=== PATIENT | male | born 1940 | race Caucasian/White ===

== ENCOUNTER 2022-04-08 21:23 | Inpatient (IN) | payer BC ==
[~2022-04-08] VITALS: Ht 177.8 cm; Wt 81.6 kg
[2022-04-08] MEDS ORDERED: ONDANSETRON 4 MG/2 ML VIAL IV ONE (21:30)
--- NOTE | 2022-04-08 21:39 | NUR ---
pt bib ra for c/o abd pain. Dr. Rudolph at bedside for MSE.
[2022-04-08] MEDS ORDERED: IV NORMAL SALINE 500 ML IV ONE (21:45)
[2022-04-08] MEDS ORDERED: MORPHINE SULFATE 2 MG/1 ML DISP.SYRIN IV ONE ×2 (21:45→22:30)
[2022-04-08] MEDS ORDERED: ONDANSETRON 4 MG/2 ML VIAL ONE (21:53)
[2022-04-08] MEDS ORDERED: MORPHINE SULFATE 2 MG/1 ML DISP.SYRIN ONE ×2 (21:53→22:42)
[2022-04-08] MEDS ORDERED: IOHEXOL 300MG/ML 100 ML INFUS..BTL ONE (21:58)
[2022-04-08] MEDS ORDERED: IV NORMAL SALINE 250 ML IV ONE (21:58)
[2022-04-08] MEDS ORDERED: SWABABLE VALVE TRANSFER SET EA MC ONE (21:58)
[2022-04-08 22:01] LABS: HEMATOCRIT 50.5 % (36.7-47.1); MEAN CORPUSCULAR HEMOGLOBIN 31.3 uug (23.8-33.4); MEAN CORPUSCULAR VOLUME 90.9 fL (73.0-96.2); PLATELET COUNT (AUTO) 156 K/uL (152-348)
[2022-04-08 22:15] LABS: ETHANOL < 3 MG/DL (0-0)
[2022-04-08 22:23] LABS: ALANINE AMINOTRANSFERASE 25 U/L (16-63); ALKALINE PHOSPHATASE 72 U/L (50-136); ASPARTATE AMINOTRANSFERASE 21 U/L (15-37); BILIRUBIN,DIRECT 0.3 mg/dL (0.0-0.2); BILIRUBIN,TOTAL 1.1 mg/dL (0.2-1.0); CARBON DIOXIDE 20 mmol/L (21-32); CHLORIDE 101 mmol/L (98-107); CREATININE 1.4 mg/dL (0.6-1.3); GLUCOSE 163 mg/dL (74-106); POTASSIUM 3.7 mmol/L (3.5-5.1); UREA NITROGEN, BLOOD 33 mg/dL (7-18)
[2022-04-08] MEDS ORDERED: hydrALAZINE HCL 20 MG/1 ML VIAL ONE (22:41)
[2022-04-08] MEDS ORDERED: hydrALAZINE HCL 20 MG/1 ML VIAL IV ONE (22:45)
--- NOTE | 2022-04-08 22:47 | NUR ---
pt is having an ultrasound done.
--- NOTE | 2022-04-08 22:48 | NUR ---
Dr. Rudolph is aware of pt's elevted bp, iv hydrazaline was given and morphine for pain.
[2022-04-08] MEDS ORDERED: IOHEXOL 350 100 ML INFUS..BTL ONE (22:49)
--- NOTE | 2022-04-08 23:03 | NUR ---
arrangments are being made for pt to go to [facility] for cat scan via ambulance. the cat scan at this hospital is not functioning. pt and his is aware.
--- NOTE | 2022-04-08 23:07 | NUR ---
spoke with [facility] ambulance for transport to [facility] for cat scan. they state eta is 75 to 90 minutes. approximatly 1230 am.
--- NOTE | 2022-04-08 23:23 | NUR ---
order received from Dr. Rudolph for insertion of urinary catheter. this was placed with a 18 fr coude catheter, pt cate well.
--- NOTE | 2022-04-08 23:50 | NUR ---
PT AND UNABLE TO PROVIDE PT'S RX. PER SHE WILL CALL TOMORROW TO UPDATE US ON HIS PRESCRIBED MEDS.
[2022-04-08 23:53] LABS: *BILIRUBIN,URIN NEGATIVE (NEGATIVE); *BLOOD, URINE NEGATIVE (NEGATIVE); *CLARITY,URINE CLEAR (CLEAR); *COLOR,URINE YELLOW (YELLOW); *KETONES,URINE 1+ (NEGATIVE); *UROBILINOGEN,URINE 0.2 E.U./dl (NORMAL); LEUKOCYTE ESTERASE ,URINE NEGATIVE (NEGATIVE); NITRITE, URINE NEGATIVE (NEGATIVE); PH,URINE 5.5 (5.0-8.0); UGLUCOSE NEGATIVE (NEGATIVE)
[2022-04-08] MEDS ORDERED: MORPHINE SULFATE 4 MG/1 ML DISP.SYRIN ONE (23:58)
[2022-04-09] MEDS ORDERED: CLONIDINE HCL 0.1 MG TABLET ONE (00:05)
--- NOTE | 2022-04-09 00:05 | NUR ---
[facility] [employer] is here for the pt to go to [facility] for cat scan. Pt was given morphine 4 mg for pain. bp remains elevated order for clonidine 0.[address] Klaudia Rudolph is aware his bp remains elevated.
[2022-04-09] MEDS ORDERED: CLONIDINE HCL 0.1 MG TABLET PO ONE (00:15)
[2022-04-09] MEDS ORDERED: MORPHINE SULFATE 4 MG/1 ML DISP.SYRIN IV ONE (00:15)
--- NOTE | 2022-04-09 00:36 | NUR ---
spoke with warehouse order filler at [facility] she is aware that this pt will be taken by ambulance to [facility] for a cat scan she was given an update of his condition.
--- NOTE | 2022-04-09 00:52 | NUR ---
pt was transported by [facility] ambulance to [place] for cat scan and will return to [facility].
--- NOTE | 2022-04-09 01:48 | NUR ---
pt returnd from [facility] ct scan.
[2022-04-09] MEDS ORDERED: IV NS 1000 ML 1,000 ML IV ONE ×2 (02:00→05:00)
--- NOTE | 2022-04-09 02:31 | NUR ---
pt was cleaned he had large stool, pt states his stomach feels better. his hr is still 118 he is still receiveing one liter of fluid.
--- NOTE | 2022-04-09 03:30 | NUR ---
pt had episode of loose stools, pt was cleaned with assistance of another nurse.
[2022-04-09] MEDS ORDERED: PIPERACILLIN SODIUM/TAZOBACTAM 3.375 G in IV DEXTROSE 5% 50 ML IV ONE (05:00)
[2022-04-09] MEDS ORDERED: PIPERACILLIN/TAZOBACTAM/D5W 50 ML IV ONE ×2 (05:10→14:09)
--- NOTE | 2022-04-09 05:21 | NUR ---
call placed to [facility] for admission.
--- NOTE | 2022-04-09 05:26 | NUR ---
Jerson Streeter called back and is speaking to Dr. Rudolph.
[2022-04-09] MEDS ORDERED: ACETAMINOPHEN 325 MG TABLET PO PRN (05:30)
[2022-04-09] MEDS ORDERED: TEMAZEPAM 15 MG CAPSULE PO PRN (05:30)
[2022-04-09] MEDS ORDERED: MAGNESIUM HYDROXIDE 30 ML LIQUID UDC PO PRN (05:30)
[2022-04-09] MEDS ORDERED: REMEDY ESSENTIAL ZINC PASTE 113 GM TP PRN (05:30)
[2022-04-09] MEDS ORDERED: IV NS 1000 ML 1,000 ML IV PRN (05:30)
--- NOTE | 2022-04-09 05:48 | NUR ---
pt had additinal episode of loose stool. pt hr now at 103
[2022-04-09 06:24] LABS: ALANINE AMINOTRANSFERASE 36 U/L (16-63); ALKALINE PHOSPHATASE 49 U/L (50-136); ASPARTATE AMINOTRANSFERASE 29 U/L (15-37); CARBON DIOXIDE 21 mmol/L (21-32); CHLORIDE 103 mmol/L (98-107); CREATININE 1.8 mg/dL (0.6-1.3); GLUCOSE 230 mg/dL (74-106); POTASSIUM 3.4 mmol/L (3.5-5.1); TOTAL PROTEIN, SERUM 6.2 g/dL (6.4-8.2); UREA NITROGEN, BLOOD 31 mg/dL (7-18)
--- NOTE | 2022-04-09 06:46 | NUR ---
call to [facility] to update on labs.
--- NOTE | 2022-04-09 08:05 | NUR ---
Cleaned pt and changed diaper. Awaiting notification from ell teacher about room placement.
--- NOTE | 2022-04-09 08:23 | NUR ---
SPO2 has been holding in 91-92 range. Placed pt on O2 via NC at 1lpm, saturation improved to 96%
[2022-04-09] MEDS ORDERED: HYDROCODONE/APAP 5-325MG TABLET ONE (08:27)
[2022-04-09] MEDS: HYDROCODONE/APAP 5-325MG TABLET PO PRN (08:32)
[2022-04-09 08:46] LABS: ALANINE AMINOTRANSFERASE 33 U/L (16-63); ALKALINE PHOSPHATASE 51 U/L (50-136); ASPARTATE AMINOTRANSFERASE 31 U/L (15-37); BILIRUBIN,TOTAL 0.9 mg/dL (0.2-1.0); CARBON DIOXIDE 22 mmol/L (21-32); CHLORIDE 105 mmol/L (98-107); CREATININE 1.6 mg/dL (0.6-1.3); GLUCOSE 232 mg/dL (74-106); POTASSIUM 3.6 mmol/L (3.5-5.1); TOTAL PROTEIN, SERUM 6.2 g/dL (6.4-8.2); UREA NITROGEN, BLOOD 33 mg/dL (7-18)
[2022-04-09] MEDS: ASPIRIN 81 MG TAB.CHEW PO SCH (09:00)
[2022-04-09] MEDS: METOPROLOL TARTRATE 25 MG TABLET PO SCH ×2 (09:00→20:35)
[2022-04-09] MEDS ORDERED: METOPROLOL TARTRATE 50 MG TABLET PO SCH (09:00)
[2022-04-09] MEDS: PANTOPRAZOLE SODIUM 40 MG VIAL IV SCH (09:00)
--- NOTE | 2022-04-09 09:05 | NUR ---
Not in stock in [facility], BP under control.
[2022-04-09] MEDS ORDERED: MORPHINE SULFATE 2 MG/1 ML DISP.SYRIN ONE (10:23)
[2022-04-09] MEDS: MORPHINE SULFATE 2 MG/1 ML DISP.SYRIN IV PRN ×2 (10:35→20:40)
[2022-04-09] MEDS ORDERED: PANTOPRAZOLE SODIUM 40 MG VIAL ONE (10:47)
[2022-04-09] MEDS ORDERED: ENOXAPARIN SODIUM 30 MG/0.3 ML DISP.SYRIN ONE (10:48)
[2022-04-09] MEDS: ENOXAPARIN SODIUM 30 MG/0.3 ML DISP.SYRIN SUBCUT SCH (10:48)
[2022-04-09] MEDS ORDERED: ASPIRIN 81 MG TAB.CHEW ONE (10:48)
[2022-04-09] MEDS ORDERED: DEXTROSE 50% 50 ML DISP.SYRIN IV PRN (11:15)
[2022-04-09] MEDS: BLOOD SUGAR DIAGNOSTIC 1 EACH STRIP VI SCH ×3 (11:54→20:31)
--- NOTE | 2022-04-09 13:00 | NUR ---
Pt states he is very axious. Admitting MD gave T.O. for Ativan, PO 1mg, Q 6hrs PRN
[2022-04-09] MEDS ORDERED: LORAZEPAM 1 MG TABLET ONE (13:05)
--- NOTE | 2022-04-09 13:45 | NUR ---
Pt more calm, resting in bed, eyes closed, easily stirs.
[2022-04-09] MEDS ORDERED: PIPERACILLIN SODIUM/TAZOBACTAM 3.375 G in IV DEXTROSE 5% 50 ML IV SCH (14:00)
[2022-04-09] MEDS: IV NS 1000 ML 1,000 ML IV SCH (14:00)
[2022-04-09] MEDS: PIPERACILLIN SODIUM/TAZOBACTAM 3.375 G in IV DEXTROSE 5% 100 ML IV SCH ×2 (14:15→22:22)
[2022-04-09] MEDS: LORAZEPAM 1 MG TABLET PO PRN (15:35)
--- NOTE | 2022-04-09 16:33 | NUR ---
Called report to CHARLIE Beckham
--- NOTE | 2022-04-09 16:44 | NUR ---
Karen called, pt will be in room 311
[2022-04-09 17:50] VITALS: BP 166/69
[2022-04-09] MEDS: DOCUSATE SODIUM 100 MG CAPSULE PO SCH (18:00)
--- NOTE | 2022-04-09 18:00 | NUR ---
Received pt from ER. Pt is from home, came in for abdominal pain. Admitting diagnosis is colitis and lactic acidosis. Pt is a/o x 3-4, presenting with normal sinus rhythm on telemetry. Pt saturating 93% on room air BP 166/69 HR 89. Placed pt on 2L NC. at bedside, provided medical history along with pt, comfort measures provided, call light within reach. Will endorse to vehicle painter.
--- NOTE | 2022-04-09 19:26 | NUR ---
Pt reports chest pain 05/20. Echocardiogram completed. Will endorse to warehouse supervisor 3rd shift.
[2022-04-09] MEDS: ATORVASTATIN 40 MG TABLET PO SCH (20:34)
[2022-04-09] MEDS: INSULIN REGULAR, HUMAN 300 UNIT/3 ML VIAL SQ PRN (20:44)
[2022-04-09 21:10] VITALS: BP 152/64
--- NOTE | 2022-04-09 21:12 | NUR ---
Patient in bed AALOx4.C/o abd'l pain and lower back pain.Denies chest pain at this time.Medicated with morphine 2 mg IVP .No s/s of distress noted. On O2 at 2LPM via NC.IV patent and intact on right AC with IVF infusing well. F/C draining well with tea colored output.Received lactic acid result trending down from 2.7 [address]Dermendjian LINARES at this time.Call light with in reach. Will continue to monitor.
[2022-04-10] VITALS: BP 151/61
[2022-04-10] MEDS: LORAZEPAM 1 MG TABLET PO PRN ×2 (00:34→21:45)
[2022-04-10] MEDS: IV NS 1000 ML 1,000 ML IV SCH ×2 (01:12→14:41)
[2022-04-10] MEDS: HYDROCODONE/APAP 5-325MG TABLET PO PRN (02:08)
[2022-04-10 04:55] VITALS: BP 146/61
[2022-04-10] MEDS: PIPERACILLIN SODIUM/TAZOBACTAM 3.375 G in IV DEXTROSE 5% 100 ML IV SCH ×3 (05:49→21:34)
[2022-04-10 06:42] LABS: HEMATOCRIT 44.5 % (36.7-47.1); MEAN CORPUSCULAR HEMOGLOBIN 31.3 uug (23.8-33.4); MEAN CORPUSCULAR VOLUME 91.5 fL (73.0-96.2); PLATELET COUNT (AUTO) 118 K/uL (152-348)
[2022-04-10] MEDS: BLOOD SUGAR DIAGNOSTIC 1 EACH STRIP VI SCH ×4 (06:48→21:33)
--- NOTE | 2022-04-10 06:56 | NUR ---
Patient slept intermittently in no acute distress noted. F/c leaking, unable to re- insert f/c d/t resistance noted and pain.Patient able to void. NSR on tele .IV patent and intact continue on IVF infusing well. Will endorse to oncoming shift.
[2022-04-10 07:23] LABS: THYROID STIMULATING HORMONE 1.309 mIU/mL (0.358-3.740)
[2022-04-10 07:24] LABS: CARBON DIOXIDE 22 mmol/L (21-32); CHLORIDE 101 mmol/L (98-107); CREATININE 1.4 mg/dL (0.6-1.3); GLUCOSE 128 mg/dL (74-106); POTASSIUM 3.8 mmol/L (3.5-5.1); UREA NITROGEN, BLOOD 38 mg/dL (7-18)
[2022-04-10 07:30] LABS: ALANINE AMINOTRANSFERASE 33 U/L (16-63); ALKALINE PHOSPHATASE 41 U/L (50-136); ASPARTATE AMINOTRANSFERASE 47 U/L (15-37); BILIRUBIN,TOTAL 0.7 mg/dL (0.2-1.0); TOTAL PROTEIN, SERUM 6.1 g/dL (6.4-8.2)
[2022-04-10 07:50] LABS: MAGNESIUM 2.2 mg/dL (1.8-2.4); PHOSPHOROUS 3.1 mg/dL (2.5-4.9)
[2022-04-10] MEDS: MIRALAX 17 GM POWD.PACK PO SCH (09:00)
[2022-04-10] MEDS: DOCUSATE SODIUM 100 MG CAPSULE PO SCH ×2 (09:00→16:44)
--- NOTE | 2022-04-10 09:40 | NUR ---
notified of critical troponin 516.
[2022-04-10] MEDS: ASPIRIN 81 MG TAB.CHEW PO SCH (09:57)
[2022-04-10] MEDS: ENOXAPARIN SODIUM 30 MG/0.3 ML DISP.SYRIN SUBCUT SCH (09:58)
[2022-04-10] MEDS: PANTOPRAZOLE SODIUM 40 MG VIAL IV SCH (09:58)
[2022-04-10] MEDS: METOPROLOL TARTRATE 25 MG TABLET PO SCH ×2 (09:59→21:00)
[2022-04-10] MEDS: INSULIN REGULAR, HUMAN 300 UNIT/3 ML VIAL SQ PRN ×2 (10:00→21:47)
[2022-04-10 11:11] VITALS: BP 114/66
[2022-04-10] MEDS ORDERED: CLOP75TA33 PO (11:51)
[2022-04-10] MEDS ORDERED: ATOR40TA PO (11:51)
[2022-04-10] MEDS ORDERED: ISOS30TA86 PO (11:51)
[2022-04-10] MEDS ORDERED: TEMA15CA PO (11:51)
[2022-04-10] MEDS ORDERED: DULO60CA45 PO (11:51)
[2022-04-10] MEDS ORDERED: LOSA25TA27 PO (11:51)
[2022-04-10] MEDS ORDERED: ALIR75PE6 SQ (11:51)
[2022-04-10] MEDS ORDERED: TOLT4CAP PO (11:51)
[2022-04-10] MEDS ORDERED: FINA5TAB11 PO (11:51)
[2022-04-10] MEDS ORDERED: TERA10CA4 PO (11:51)
[2022-04-10] MEDS ORDERED: PANT40TA49 PO (11:51)
[2022-04-10] MEDS ORDERED: RANO500T3 PO (11:51)
[2022-04-10 15:18] VITALS: BP 124/85
--- NOTE | 2022-04-10 15:40 | NUR ---
Troponin level still critical high but downward trending. lab reported level to 469. Finisher Hand and puff ironer notified. No further changes in care. Home medications reconciled per MD order.
[2022-04-10] MEDS ORDERED: PANTOPRAZOLE SODIUM 40 MG TABLET.DR PO SCH (15:45)
[2022-04-10] MEDS: FINASTERIDE 5 MG TABLET PO SCH (16:43)
[2022-04-10] MEDS: TERAZOSIN 5 MG CAPSULE PO SCH (16:43)
[2022-04-10] MEDS: ISOSORBIDE MONONITRATE 30 MG TAB.SR.24H PO SCH (16:44)
[2022-04-10] MEDS: DULOXETINE 60 MG CAPSULE.DR PO SCH (16:44)
[2022-04-10] MEDS: LOSARTAN POTASSIUM 25 MG TABLET PO SCH (16:49)
--- NOTE | 2022-04-10 18:53 | NUR ---
Pt had pulled out IV access, attempted multiple attempts but unsuccessful. Midline inserted left upperarm 18g. pt is a/o x 3-4, at bedside, comfort measures provided. will endorse
--- NOTE | 2022-04-10 19:30 | NUR ---
Received patient dangle both legs, wanted to get up but changed his mind, assisted back to bed, at bedside,complain of sob/anxiety, but no chest pain, tele monitor sinus rhythm at this time, on oxygen 2 liters sat 94% will offer antianxiety meds as ordered. no s/s of distress.
--- NOTE | 2022-04-10 19:35 | NUR ---
Patient was noted that his sliding toward the foot of the bed, two staff pulled patient up to head of the bed, stated that he feels better on upright position, because he complain of sob earlier. cont to monitor.
[2022-04-10 20:03] VITALS: BP 94/52
[2022-04-10] MEDS ORDERED: ATORVASTATIN 40 MG TABLET PO SCH (21:00)
[2022-04-10] MEDS ORDERED: TEMAZEPAM 15 MG CAPSULE PO SCH (21:00)
[2022-04-10] MEDS: ATORVASTATIN 40 MG TABLET PO SCH (21:33)
[2022-04-10] MEDS: RANOLAZINE 500 MG TAB.ER.12H PO SCH (21:33)
--- NOTE | 2022-04-10 21:48 | NUR ---
Patient restless, complaining of anxiety, offered ativan for anxiety, agree to take it, cont to monitor.
[2022-04-11 00:03] VITALS: BP 91/51
[2022-04-11 04:06] VITALS: BP 100/55
[2022-04-11] MEDS: PIPERACILLIN SODIUM/TAZOBACTAM 3.375 G in IV DEXTROSE 5% 100 ML IV SCH ×3 (04:25→21:07)
[2022-04-11] MEDS: IV NS 1000 ML 1,000 ML IV SCH (04:25)
[2022-04-11] MEDS: BLOOD SUGAR DIAGNOSTIC 1 EACH STRIP VI SCH ×4 (05:05→20:48)
--- NOTE | 2022-04-11 05:57 | NUR ---
Patient alert oriented, no sob no chest pain, no further episode of diarrhea noted, just passing gas, voiding well. Patient has no complain of abdominal pain at this time, call light within reach.
[2022-04-11 07:36] LABS: MEAN CORPUSCULAR HEMOGLOBIN 31.6 uug (23.8-33.4); MEAN CORPUSCULAR VOLUME 91.3 fL (73.0-96.2); PLATELET COUNT (AUTO) 101 K/uL (152-348)
[2022-04-11 07:39] LABS: ALANINE AMINOTRANSFERASE 30 U/L (16-63); ALKALINE PHOSPHATASE 40 U/L (50-136); ASPARTATE AMINOTRANSFERASE 36 U/L (15-37); BILIRUBIN,TOTAL 0.7 mg/dL (0.2-1.0); CARBON DIOXIDE 25 mmol/L (21-32); CHLORIDE 97 mmol/L (98-107); CREATININE 2.1 mg/dL (0.6-1.3); GLUCOSE 110 mg/dL (74-106); POTASSIUM 3.5 mmol/L (3.5-5.1); TOTAL PROTEIN, SERUM 5.7 g/dL (6.4-8.2); UREA NITROGEN, BLOOD 51 mg/dL (7-18)
[2022-04-11 07:55] VITALS: BP 104/49
[2022-04-11] MEDS: PANTOPRAZOLE SODIUM 40 MG VIAL IV SCH (08:01)
[2022-04-11] MEDS: ASPIRIN 81 MG TAB.CHEW PO SCH (08:02)
[2022-04-11] MEDS: DOCUSATE SODIUM 100 MG CAPSULE PO SCH ×2 (08:03→17:00)
[2022-04-11] MEDS: LOSARTAN POTASSIUM 25 MG TABLET PO SCH (08:03)
[2022-04-11] MEDS: RANOLAZINE 500 MG TAB.ER.12H PO SCH ×2 (08:03→20:38)
[2022-04-11] MEDS: FINASTERIDE 5 MG TABLET PO SCH (08:04)
[2022-04-11] MEDS: DULOXETINE 60 MG CAPSULE.DR PO SCH (08:04)
[2022-04-11] MEDS: ISOSORBIDE MONONITRATE 30 MG TAB.SR.24H PO SCH (08:07)
[2022-04-11] MEDS: MIRALAX 17 GM POWD.PACK PO SCH ×2 (08:07→14:57)
[2022-04-11] MEDS: ENOXAPARIN SODIUM 30 MG/0.3 ML DISP.SYRIN SUBCUT SCH (08:13)
[2022-04-11] MEDS: CLOPIDOGREL 75 MG TABLET PO SCH (08:21)
[2022-04-11] MEDS: TERAZOSIN 5 MG CAPSULE PO SCH (09:00)
[2022-04-11] MEDS: METOPROLOL TARTRATE 25 MG TABLET PO SCH ×2 (09:00→20:38)
--- NOTE | 2022-04-11 09:33 | NUR ---
cardio to review or place parameters on BP meds. nursing holding BP meds last night and BP trending low.
[2022-04-11] MEDS: HYDROCODONE/APAP 5-325MG TABLET PO PRN ×2 (09:35→14:46)
[2022-04-11 15:03] VITALS: BP 99/60
[2022-04-11 17:11] VITALS: BP 115/79
[2022-04-11 20:00] VITALS: BP 115/59
[2022-04-11] MEDS: MORPHINE SULFATE 2 MG/1 ML DISP.SYRIN IV PRN (20:37)
[2022-04-11] MEDS: ATORVASTATIN 40 MG TABLET PO SCH (20:37)
[2022-04-11] MEDS: INSULIN REGULAR, HUMAN 300 UNIT/3 ML VIAL SQ PRN (20:49)
[2022-04-12] MEDS: MORPHINE SULFATE 2 MG/1 ML DISP.SYRIN IV PRN (02:32)
--- NOTE | 2022-04-12 03:40 | NUR ---
Patient continue to have abdominal discomfort with occasional SOB. On 2L 02 via NC, Patient encouraged to deep breath. Patient able to sit up at edge of bed, ABD is distended and firm. No Bowel movements at the time. Ice chips provided with help and provides comfort. Morphine provided PRN for ABD pain, effective. All needs attended, call light within reach.
[2022-04-12 04:00] VITALS: BP 142/73
[2022-04-12] MEDS: ONDANSETRON 4 MG/2 ML VIAL IV PRN (04:58)
[2022-04-12] MEDS: PIPERACILLIN SODIUM/TAZOBACTAM 3.375 G in IV DEXTROSE 5% 100 ML IV SCH ×3 (05:01→21:53)
[2022-04-12] MEDS: LORAZEPAM 1 MG TABLET PO PRN ×2 (05:01→22:17)
[2022-04-12] MEDS: PANTOPRAZOLE SODIUM 40 MG TABLET.DR PO SCH (06:31)
[2022-04-12] MEDS: BLOOD SUGAR DIAGNOSTIC 1 EACH STRIP VI SCH ×4 (06:31→21:00)
[2022-04-12 07:21] LABS: HEMATOCRIT 35.7 % (36.7-47.1); MEAN CORPUSCULAR HEMOGLOBIN 31.6 uug (23.8-33.4); MEAN CORPUSCULAR VOLUME 91.4 fL (73.0-96.2); PLATELET COUNT (AUTO) 110 K/uL (152-348)
[2022-04-12 07:30] VITALS: BP 163/66
[2022-04-12 07:33] LABS: CARBON DIOXIDE 25 mmol/L (21-32); CHLORIDE 98 mmol/L (98-107); GLUCOSE 124 mg/dL (74-106); POTASSIUM 3.3 mmol/L (3.5-5.1); UREA NITROGEN, BLOOD 53 mg/dL (7-18)
[2022-04-12 07:44] LABS: ALANINE AMINOTRANSFERASE 32 U/L (16-63); ALKALINE PHOSPHATASE 45 U/L (50-136); ASPARTATE AMINOTRANSFERASE 36 U/L (15-37); BILIRUBIN,TOTAL 0.7 mg/dL (0.2-1.0); TOTAL PROTEIN, SERUM 6.3 g/dL (6.4-8.2)
[2022-04-12] MEDS: CLOPIDOGREL 75 MG TABLET PO SCH (09:09)
[2022-04-12] MEDS: DULOXETINE 60 MG CAPSULE.DR PO SCH (09:09)
[2022-04-12] MEDS: FINASTERIDE 5 MG TABLET PO SCH (09:09)
[2022-04-12] MEDS: METOPROLOL TARTRATE 25 MG TABLET PO SCH ×2 (09:10→22:07)
[2022-04-12] MEDS: MIRALAX 17 GM POWD.PACK PO SCH (09:11)
[2022-04-12] MEDS: ISOSORBIDE MONONITRATE 30 MG TAB.SR.24H PO SCH (09:11)
[2022-04-12] MEDS: ENOXAPARIN SODIUM 30 MG/0.3 ML DISP.SYRIN SUBCUT SCH (09:12)
[2022-04-12] MEDS: RANOLAZINE 500 MG TAB.ER.12H PO SCH ×2 (09:18→22:08)
[2022-04-12] MEDS: TERAZOSIN 5 MG CAPSULE PO SCH (09:18)
[2022-04-12] MEDS: DOCUSATE SODIUM 100 MG CAPSULE PO SCH ×2 (09:18→16:35)
[2022-04-12] MEDS: ASPIRIN 81 MG TAB.CHEW PO SCH (09:18)
[2022-04-12] MEDS ORDERED: POTASSIUM CHLORIDE 10 MEQ TAB.PRT.SR PO ONE (10:00)
[2022-04-12] MEDS ORDERED: MIRALAX 17 GM POWD.PACK PO SCH (10:15)
[2022-04-12] MEDS ORDERED: DOCUSATE SODIUM 100 MG CAPSULE PO SCH (10:15)
[2022-04-12] MEDS: AMLODIPINE 5 MG TABLET PO SCH (10:46)
[2022-04-12 11:27] VITALS: BP 112/60
--- NOTE | 2022-04-12 11:30 | NUR ---
assisted to chair for lunch, tolerated well, informed PT of eval order, denies of discomfort at this time, seen by water resource agent, still has some abdominal distention
[2022-04-12] MEDS: INSULIN REGULAR, HUMAN 300 UNIT/3 ML VIAL SQ PRN ×2 (12:13→16:35)
[2022-04-12 16:04] VITALS: BP 112/64
[2022-04-12] MEDS: IV NS 1000 ML 1,000 ML IV PRN (18:51)
[2022-04-12 20:20] VITALS: BP 119/64
[2022-04-12] MEDS: ATORVASTATIN 40 MG TABLET PO SCH (22:03)
[2022-04-12] MEDS: SIMETHICONE 80 MG TAB.CHEW PO SCH (22:08)
[2022-04-12 23:12] LABS: *BILIRUBIN,URIN NEGATIVE (NEGATIVE); *CLARITY,URINE CLEAR (CLEAR); *COLOR,URINE YELLOW (YELLOW); *KETONES,URINE NEGATIVE (NEGATIVE); *UROBILINOGEN,URINE 0.2 E.U./dl (NORMAL); LEUKOCYTE ESTERASE ,URINE NEGATIVE (NEGATIVE); NITRITE, URINE NEGATIVE (NEGATIVE); UGLUCOSE NEGATIVE (NEGATIVE)
[2022-04-12 23:15] LABS: *BLOOD, URINE TRACE LYSED (NEGATIVE)
--- NOTE | 2022-04-13 | NUR ---
URINE SAMPLE OBTAINED FOR DIAGNOSTICS.
[2022-04-13 00:33] VITALS: BP 122/65
[2022-04-13 01:34] LABS: RBC,URINE 0-3 /HPF (0-3)
[2022-04-13 01:35] LABS: BACTERIA,URINE FEW /HPF (NONE SEEN); SQUAMOUS EPITHELIAL CELL,UR FEW /HPF (NONE SEEN)
[2022-04-13 03:16] LABS: *CREATININE,URINE 70.4 mg/dL (30-125)
[2022-04-13] MEDS: IV NS 1000 ML 1,000 ML IV PRN (04:42)
[2022-04-13 05:05] VITALS: BP 132/64
[2022-04-13] MEDS: PIPERACILLIN SODIUM/TAZOBACTAM 3.375 G in IV DEXTROSE 5% 100 ML IV SCH ×2 (05:28→19:01)
[2022-04-13 06:51] LABS: HEMATOCRIT 34.3 % (36.7-47.1); PLATELET COUNT (AUTO) 103 K/uL (152-348)
[2022-04-13] MEDS: BLOOD SUGAR DIAGNOSTIC 1 EACH STRIP VI SCH ×4 (06:59→21:31)
[2022-04-13 07:08] LABS: ALANINE AMINOTRANSFERASE 30 U/L (16-63); ALKALINE PHOSPHATASE 63 U/L (50-136); ASPARTATE AMINOTRANSFERASE 25 U/L (15-37); BILIRUBIN,TOTAL 0.7 mg/dL (0.2-1.0); CARBON DIOXIDE 25 mmol/L (21-32); CHLORIDE 101 mmol/L (98-107); CREATININE 1.5 mg/dL (0.6-1.3); GLUCOSE 113 mg/dL (74-106); POTASSIUM 3.9 mmol/L (3.5-5.1); UREA NITROGEN, BLOOD 44 mg/dL (7-18)
[2022-04-13] MEDS: PANTOPRAZOLE SODIUM 40 MG TABLET.DR PO SCH (07:57)
[2022-04-13] MEDS: SIMETHICONE 80 MG TAB.CHEW PO SCH ×4 (09:00→21:28)
[2022-04-13] MEDS: RANOLAZINE 500 MG TAB.ER.12H PO SCH ×2 (09:09→21:29)
[2022-04-13] MEDS: DULOXETINE 60 MG CAPSULE.DR PO SCH (09:09)
[2022-04-13] MEDS: ASPIRIN 81 MG TAB.CHEW PO SCH (09:09)
[2022-04-13] MEDS: DOCUSATE SODIUM 100 MG CAPSULE PO SCH ×2 (09:09→17:49)
[2022-04-13] MEDS: MIRALAX 17 GM POWD.PACK PO SCH (09:09)
[2022-04-13] MEDS: CLOPIDOGREL 75 MG TABLET PO SCH (09:10)
[2022-04-13] MEDS: FINASTERIDE 5 MG TABLET PO SCH (09:10)
[2022-04-13] MEDS: TERAZOSIN 5 MG CAPSULE PO SCH (09:13)
[2022-04-13] MEDS: AMLODIPINE 5 MG TABLET PO SCH (09:14)
[2022-04-13] MEDS: METOPROLOL TARTRATE 25 MG TABLET PO SCH ×2 (09:14→21:28)
[2022-04-13] MEDS: ISOSORBIDE MONONITRATE 30 MG TAB.SR.24H PO SCH (09:15)
[2022-04-13] MEDS: ENOXAPARIN SODIUM 30 MG/0.3 ML DISP.SYRIN SUBCUT SCH (09:57)
--- NOTE | 2022-04-13 11:03 | NUR ---
PATIENT SEEN AND EXAMINED BY BIANCA GALEANO NP WITH NEW ORDERS AND NOTED. Addendum: 04/13/22 at 1921 by LULU HANSEN RN ERROR WRONG PATIENT
[2022-04-13 11:14] VITALS: BP 125/62
[2022-04-13] MEDS: INSULIN REGULAR, HUMAN 300 UNIT/3 ML VIAL SQ PRN ×2 (12:45→21:35)
[2022-04-13 16:33] VITALS: BP 143/71
[2022-04-13 20:00] VITALS: BP 123/76
[2022-04-13] MEDS: LORAZEPAM 1 MG TABLET PO PRN (21:29)
[2022-04-13] MEDS: ATORVASTATIN 40 MG TABLET PO SCH (21:30)
[2022-04-13] MEDS: MORPHINE SULFATE 2 MG/1 ML DISP.SYRIN IV PRN (21:30)
[2022-04-14] VITALS: BP 143/76
[2022-04-14] MEDS: ONDANSETRON 4 MG/2 ML VIAL IV PRN (01:34)
[2022-04-14 04:00] VITALS: BP 125/77
[2022-04-14] MEDS: PIPERACILLIN SODIUM/TAZOBACTAM 3.375 G in IV DEXTROSE 5% 100 ML IV SCH ×2 (04:22→11:00)
[2022-04-14] MEDS: PANTOPRAZOLE SODIUM 40 MG TABLET.DR PO SCH (06:17)
--- NOTE | 2022-04-14 07:20 | NUR ---
RECEIVED PATIENT IN BED AWAKE ALERT AND ORIENTED DENIES PAIN OR DISCOMFORTS AT THIS TIME IVF REMAINS IN PROGRESS WITH NO S/S OF INFILTERATION ON SITE CALL LIGHTS AND PERSONAL BELONGINGS ARE WITHIN EASY REACH MADE COMFORTABLE WILL CONTINUE TO OBSERVE.
[2022-04-14 08:46] LABS: HEMATOCRIT 33.9 % (36.7-47.1); MEAN CORPUSCULAR HEMOGLOBIN 31.5 uug (23.8-33.4); MEAN CORPUSCULAR VOLUME 91.4 fL (73.0-96.2); PLATELET COUNT (AUTO) 107 K/uL (152-348)
[2022-04-14 08:52] LABS: CREATININE 1.2 mg/dL (0.6-1.3); POTASSIUM 3.8 mmol/L (3.5-5.1)
[2022-04-14] MEDS: FINASTERIDE 5 MG TABLET PO SCH (09:12)
[2022-04-14] MEDS: SIMETHICONE 80 MG TAB.CHEW PO SCH ×3 (09:12→16:41)
[2022-04-14] MEDS: CLOPIDOGREL 75 MG TABLET PO SCH (09:12)
[2022-04-14] MEDS: DULOXETINE 60 MG CAPSULE.DR PO SCH (09:12)
[2022-04-14] MEDS: RANOLAZINE 500 MG TAB.ER.12H PO SCH (09:12)
[2022-04-14] MEDS: ASPIRIN 81 MG TAB.CHEW PO SCH (09:12)
[2022-04-14] MEDS: ISOSORBIDE MONONITRATE 30 MG TAB.SR.24H PO SCH (09:13)
[2022-04-14] MEDS: AMLODIPINE 5 MG TABLET PO SCH (09:14)
[2022-04-14] MEDS: METOPROLOL TARTRATE 25 MG TABLET PO SCH (09:14)
[2022-04-14] MEDS: TERAZOSIN 5 MG CAPSULE PO SCH (09:14)
[2022-04-14] MEDS: MIRALAX 17 GM POWD.PACK PO SCH (09:15)
[2022-04-14] MEDS: ENOXAPARIN SODIUM 30 MG/0.3 ML DISP.SYRIN SUBCUT SCH (09:18)
[2022-04-14] MEDS: DOCUSATE SODIUM 100 MG CAPSULE PO SCH ×2 (09:22→16:41)
[2022-04-14] MEDS: BLOOD SUGAR DIAGNOSTIC 1 EACH STRIP VI SCH ×3 (09:22→16:30)
[2022-04-14] MEDS ORDERED: SENN8.8S19 PO (11:08)
[2022-04-14] MEDS ORDERED: DOCU250C14 PO (11:08)
[2022-04-14] MEDS ORDERED: SIME80TA15 PO (11:08)
[2022-04-14] MEDS ORDERED: CIPR-262 PO (11:08)
[2022-04-14] MEDS ORDERED: METR500T PO (11:08)
[2022-04-14 11:58] VITALS: BP 113/62
[2022-04-14] MEDS: INSULIN REGULAR, HUMAN 300 UNIT/3 ML VIAL SQ PRN (12:12)
--- NOTE | 2022-04-14 12:25 | NUR ---
patient is being prepped for discharge and iv site not functioning well and patient refused to have a new site reinserted iv atb not given
--- NOTE | 2022-04-14 14:30 | NUR ---
SPOKE WITH PATIENTS [facility] STATED WILL FEED HER ANIMALS FIRST AND WILL THEN COME IN ABOUT 1630 TO PAYROLL BENEFITS ADMINISTRATOR HER .PATIENT AWARE.
[2022-04-14 15:37] VITALS: BP 133/62
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
== END 2022-04-14 17:25 | disposition home or self-care (01) | DRG 371 ==
LOC: ER 21:26 → TRANSITION 04-09 09:00 → TELE3 04-09 16:37
PROVIDERS: ADMIT Internal Medicine; ATTEND Internal Medicine
PROC: 05H633Z Insertion of Infusion Device into Left Subclavian Vein, Percutaneous Approach (ICD-10-PCS; principal; 2022-04-10)
PROC: B547ZZA Ultrasonography of Left Subclavian Vein, Guidance (ICD-10-PCS; 2022-04-10)
DX: A04.9 Bacterial intestinal infection, unspecified (principal); I21.A1 Myocardial infarction type 2; N17.0 Acute kidney failure with tubular necrosis; I16.9 Hypertensive crisis, unspecified; E87.2 Acidosis; K56.7 Ileus, unspecified; E11.65 Type 2 diabetes mellitus with hyperglycemia; E87.6 Hypokalemia; I10 Essential (primary) hypertension; I25.10 Atherosclerotic heart disease of native coronary artery without angina pectoris; Z95.1 Presence of aortocoronary bypass graft; T50.8X5A Adverse effect of diagnostic agents, initial encounter; Y92.89 Other specified places as the place of occurrence of the external cause; N40.0 Benign prostatic hyperplasia without lower urinary tract symptoms; Z95.2 Presence of prosthetic heart valve; N14.1 Nephropathy induced by other drugs, medicaments and biological substances; E11.22 Type 2 diabetes mellitus with diabetic chronic kidney disease; N18.9 Chronic kidney disease, unspecified; I12.9 Hypertensive chronic kidney disease with stage 1 through stage 4 chronic kidney disease, or unspecified chronic kidney disease
CPT/HCPCS: 36415; 71045; 71250; 74018; 74021; 76700; 76775; 83605; 83735; 84100; 84300; 84443; 84484; 85025; 85730; 87040; 93005; 93307; 97161; C9113; G0378; G0480; J0360; J1650; J1815; J2270; J2405; J2543; J7040; Q9967